=== PATIENT | male | born 1955 | race Caucasian/White ===

== ENCOUNTER 2019-09-17 18:54 | Emergency (ER) | payer OTHER ==
--- NOTE | 2019-09-17 19:41 | RAD ---
EXAM: XR Toe(s) Lt Min 2 View DATE: 09/17/2019 7:14 PM INDICATION: Left great toe injury after tripping COMPARISON: None. FINDING: There is a comminuted, dorsally angulated fracture involving the proximal phalangeal shaft of the great toe. There is healed fracture deformity involving the second digit proximal phalanx with fusion of the second digit IP joint. 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 IMPRESSION:Acute, comminuted, dorsally angulated great toe proximal phalangeal shaft fracture.
[2019-09-17] MEDS ORDERED: HYDROcodone/Acetaminophen 5/325 mg Tablet ONE (19:50)
== END 2019-09-17 20:01 | disposition home or self-care (01) ==
LOC: SCSER 18:54
DX: S92.412A Displaced fracture of proximal phalanx of left great toe, initial encounter for closed fracture (principal); I10 Essential (primary) hypertension; E78.00 Pure hypercholesterolemia, unspecified; W01.0XXA Fall on same level from slipping, tripping and stumbling without subsequent striking against object, initial encounter